=== PATIENT | female | born 1955 | race Caucasian/White ===

== ENCOUNTER 2021-11-28 20:00 | Emergency (ER) | payer SELFPAY ==
[~2021-11-28] VITALS: Ht 167.6 cm; Wt 90.7 kg
[2021-11-28] MEDS ORDERED: ZOCOR20 MG PO (20:52)
[2021-11-28] MEDS ORDERED: CELEXA40 M1 PO (20:59)
[2021-11-28] MEDS ORDERED: Prednisone50 MG PO (21:33)
[2021-11-28] MEDS ORDERED: Percocet 5-3251 EACH PO (21:33)
[2021-11-28] MEDS ORDERED: Robaxin750 MG PO (21:33)
== END 2021-11-28 21:58 | disposition home or self-care (01) ==
LOC: ER 20:00
DX: M54.16 Radiculopathy, lumbar region (principal); Z88.8 Allergy status to other drugs, medicaments and biological substances
CPT/HCPCS: 99283; A9270; J7512

== ENCOUNTER → 2022-08-31 | Outpatient (CLI) | payer OTHER, MEDICAID ==
[~2022-08-31] MED LIST: CELEXA40 M1 PO; Percocet 5-3251 EACH PO; Prednisone50 MG PO; Robaxin750 MG PO; ZOCOR20 MG PO
[2022-09-07 09:10] LABS: HPV 16 Negative (Negative); HPV 18 Negative (Negative); HPV OTHER HR TYPES Negative (Negative)
== END ==
LOC: LAB SHORT 12:57 → LAB 12:57
PROVIDERS: Family Medicine
DX: Z01.419 Encounter for gynecological examination (general) (routine) without abnormal findings (principal)
CPT/HCPCS: 87624; G0145